=== PATIENT | female | born 1960 | race Caucasian/White ===

== ENCOUNTER 2020-09-20 06:52 | Inpatient (IN) | payer OTHER ==
[~2020-09-20] VITALS: Ht 175.3 cm; Wt 85.4 kg
[2020-09-20 07:51] LABS: BASOPHIL 0.3 % (0-2); EOSINOPHIL 1.8 % (0-5); HCT 34.7 % (37.0-47.0); HGB 11.2 g/dl (12.5-16.0); MCH 30.4 pg (25.0-31.0); MCHC 32.3 g/dL (32.0-36.0); MONOCYTE 6.5 % (0-12); MPV 10.1 fL (6.0-9.5); NEUTROPHIL 78.1 % (41-80); NRBC 0; PLT 224 K/uL (150-400); RBC 3.69 M/uL (4.20-5.40); WBC 8.9 K/uL (4.0-10.5)
[2020-09-20 07:55] LABS: INR 1.05 (0.9-1.2)
[2020-09-20 07:56] LABS: PTT 26.9 SECONDS (22.2-34.7)
[2020-09-20 08:13] LABS: PRO-BNP 5414 pg/mL (<125)
[2020-09-20 08:15] LABS: ALBUMIN 3.5 g/dL (3.4-5.0); BUN/CREAT RATIO (CALC) 20.2 RATIO; CREATININE 0.99 mg/dL (0.51-0.95); GLOBULIN (CALCULATION) 3.2 g/dL; MAGNESIUM 1.3 mg/dL (1.8-2.4); POTASSIUM 3.7 mmol/L (3.5-5.1); TOTAL PROTEIN 6.7 g/dL (6.4-8.2)
[2020-09-20 08:17] LABS: LACTIC ACID 1.7 mmol/L (0.4-1.9)
[2020-09-20 09:36] LABS: BILIRUBIN NEGATIVE (NEGATIVE); BLOOD NEGATIVE Ery/uL (NEGATIVE); CLARITY CLEAR (CLEAR); COLOR YELLOW (YELLOW); GLUCOSE (U) NORMAL (NORMAL); LEUKOCYTES NEGATIVE Leu/uL (NEGATIVE); NITRITE NEGATIVE (NEGATIVE); PROTEIN NEGATIVE (NEGATIVE); UROBILINOGEN 0.2 mg/dL (0.2-1.0)
[2020-09-20] MEDS ORDERED: ASPIRIN325 MG PO (10:31)
[2020-09-20] MEDS ORDERED: OS-CAL500 MG PO (10:31)
[2020-09-20] MEDS ORDERED: PROZAC20 MG PO (10:32)
[2020-09-20] MEDS ORDERED: VITAMIN D3125 MC2 PO (10:34)
[2020-09-20] MEDS ORDERED: BUSPAR5 MG PO (10:35)
[2020-09-20] MEDS ORDERED: COZAAR50 MG PO (10:35)
[2020-09-20] MEDS ORDERED: LOPRESSOR50 MG PO (10:36)
[2020-09-20] MEDS ORDERED: METFORMIN HCL500 MG PO ×2 (10:36→10:37)
[2020-09-20] MEDS ORDERED: LIPITOR20 MG PO (10:39)
[2020-09-20] MEDS ORDERED: IRON160 MG PO (10:41)
[2020-09-21 04:32] LABS: BUN/CREAT RATIO (CALC) 24.3 RATIO; CREATININE 1.15 mg/dL (0.51-0.95); MAGNESIUM 1.5 mg/dL (1.8-2.4); POTASSIUM 3.2 mmol/L (3.5-5.1)
[2020-09-21] MEDS ORDERED: TOPROL XL100 MG PO (08:18)
--- NOTE | 2020-09-21 13:45 | NUR ---
09/21/20 Ms. Ng and her son share a home together. Ms. Ng was independent and working prior to admission. She reports the MD to have told her she might not ever be able to return to work. 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 She was also provided with financial community resources.
== END 2020-09-21 12:40 | disposition other institution (70) | DRG 291 ==
LOC: FER 06:52 → FTCU 09:13
PROVIDERS: Emergency Medicine; ADMIT Allergy & Immunology Allergy
DX: I11.0 Hypertensive heart disease with heart failure (principal); I50.21 Acute systolic (congestive) heart failure; E87.3 Alkalosis; N17.9 Acute kidney failure, unspecified; I25.10 Atherosclerotic heart disease of native coronary artery without angina pectoris; Z20.822 Contact with and (suspected) exposure to COVID-19; E11.9 Type 2 diabetes mellitus without complications; E78.5 Hyperlipidemia, unspecified; Z82.49 Family history of ischemic heart disease and other diseases of the circulatory system; E83.42 Hypomagnesemia; F41.9 Anxiety disorder, unspecified; K80.20 Calculus of gallbladder without cholecystitis without obstruction; M10.9 Gout, unspecified; Z98.51 Tubal ligation status; Z87.891 Personal history of nicotine dependence
CPT/HCPCS: 36415; 36600; 71250; 80048; 80053; 80061; 81003; 82803; 82962; 83036; 83605; 83735; 83880; 84145; 84443; 84484; 85025; 85610; 85730; 87040; 93005; 94640; 94664; J1650; J1940; J2405; J2930; J3475; U0002

== ENCOUNTER 2021-05-24 09:02 | Day surgery (SDC) | payer OTHER ==
[~2021-05-24] VITALS: Ht 177 cm; Wt 87.0 kg
[~2021-05-24 09:02] MED LIST: ALENDRONATE SOD70 MG PO; ASPIRIN325 MG PO; BUSPAR5 MG PO; COCONUT OIL1000 MG PO; COZAAR50 MG PO; ENTRESTO 24 MG1 EACH PO; HYDROXYZINE PAM50 M1 PO; IRON160 MG PO; LASIX20 MG PO; LIPITOR20 MG PO; LOPRESSOR50 MG PO; LOVAZA1 GM PO; MAG-OXIDE 400M400 MG PO; METFORMIN HCL500 MG PO; OS-CAL500 MG PO; PROZAC20 MG PO; TOPROL XL100 MG PO; VITAMIN D3125 MC2 PO
--- NOTE | 2021-05-24 12:24 | NUR ---
SMALL CIRCULAR DRY SKIN LESION NOTED TO ANTERIOR UPPER LEFT BRITO. PATIENT STATED IT OCCURED A WEEK AGO FROM PET. DR. DUBON NOTIFIED. PHILIP [place], DR. VERA, AND DR. DUBON ALL ASSESSED LESION, DR. DUBON CLEARED TO CONTINUE WITH SURGERY.
--- NOTE | 2021-05-24 15:09 | NUR ---
PT HAD A LTKR THIS DATE. PT. WILL D/C HOME WITH SON. ANTICIPATED D/C IS 05/25/21 [facility] TO DELIVER A RW. PT REQUESTED [facility]. FIRST APPT. IS 05/27/21 @ 9:15 AM. JENNIFER PAPERWORK GIVEN TO PATIENT. CHOICE FORM SIGNED AND COPY GIVEN.
[2021-05-25 05:56] LABS: BASOPHIL 0.2 % (0-2); EOSINOPHIL 0 % (0-5); HCT 32.8 % (37.0-47.0); HGB 9.9 g/dl (12.5-16.0); LYMPHOCYTE 15.7 % (15-48); MCH 28.3 pg (25.0-31.0); MCHC 30.2 g/dL (32.0-36.0); MCV 93.7 fL (78.0-100.0); MONOCYTE 10.8 % (0-12); MPV 9.5 fL (6.0-9.5); NEUTROPHIL 72.9 % (41-80); NRBC 0; PLT 146 K/uL (150-400); RDW 13.2 % (11.5-14.0); WBC 9.2 K/uL (4.0-10.5)
[2021-05-25 06:14] LABS: BUN/CREAT RATIO (CALC) 21.8 RATIO; CREATININE 1.24 mg/dL (0.51-0.95); POTASSIUM 5.3 mmol/L (3.5-5.1)
[2021-05-25] MEDS ORDERED: ASPIRIN81 MG PO (09:55)
== END 2021-05-25 12:10 | disposition home or self-care (01) ==
LOC: FAS 09:02 → FMS 12:10 → FAS 05-25 12:10
PROVIDERS: Orthopaedic Surgery
DX: M17.12 Unilateral primary osteoarthritis, left knee (principal); M79.4 Hypertrophy of (infrapatellar) fat pad; M76.9 Unspecified enthesopathy, lower limb, excluding foot; E11.9 Type 2 diabetes mellitus without complications; E78.5 Hyperlipidemia, unspecified
CPT/HCPCS: 36415; 73560; 80048; 82962; 85025; 86850; 86900; 86901; 94010; 94762; 97110; 97162; 97165; 97530-GP; 97535; C1713; C1776; J0171; J0697; J1100; J1170; J2250; J2270; J2405; J2704; J2795; J3010; J7120